=== PATIENT | male | born 1965 | race Caucasian/White ===

== ENCOUNTER 2021-02-10 08:40 | Emergency (ER) | payer BC ==
[~2021-02-10] VITALS: Ht 175.3 cm; Wt 106.8 kg
[2021-02-10] MEDS ORDERED: clindamycin 600mg/D5W 50ml 50 ML IV ONE (09:45)
[2021-02-10 10:22] LABS: BASOPHILS # (AUTO) 0.1 X10'3 (0-0.2); BASOPHILS % (AUTO) 0.8 % (0-1); EOSINOPHILS # (AUTO) 0.2 X10'3 (0-0.9); HEMATOCRIT 39.8 % (42.0-52.0); HEMOGLOBIN 13.6 g/dl (14.0-17.9); LYMPHOCYTES # (AUTO) 1.7 X10'3 (1.1-4.8); LYMPHOCYTES % (AUTO) 14.1 % (21-51); MEAN CORPUSCULAR HEMOGLOBIN 31.6 PG (27.0-31.0); MEAN CORPUSCULAR HGB CONC 34.1 g/dL (33.0-36.5); MEAN CORPUSCULAR VOLUME 92.7 FL (78-98); MEAN PLATELET VOLUME 8.9 FL (7.4-10.4); MONOCYTES % (AUTO) 8.1 % (2-12); NEUTROPHILS # (AUTO) 8.9 X10'3 (1.8-7.7); PLATELET COUNT 196 X10'3 (140-440); RED CELL DISTRIBUTION WIDTH 13.4 % (11.5-14.5); WHITE BLOOD COUNT 11.9 X10'3 (4.5-11.0)
[2021-02-10 10:23] LABS: PARTIAL THROMBOPLASTIN TIME 32 SECONDS (22-32)
[2021-02-10 10:34] LABS: ALANINE AMINOTRANSFERASE 31 U/L (12-78); ALBUMIN/GLOBULIN RATIO 1.1 (1.1-1.5); ALKALINE PHOSPHATASE 65 IU/L (46-116); ANION GAP 10 (8-16); ASPARTATE AMINO TRANSFERASE 18 U/L (10-37); BILIRUBIN,TOTAL 0.9 MG/DL (0.1-1.0); BLOOD UREA NITROGEN 14 MG/DL (7-18); BUN/CREATININE RATIO 15.2 (5.4-32.0); CALCIUM 8.9 MG/DL (8.5-10.1); CHLORIDE 101 MMOL/L (99-107); CREATININE 0.92 MG/DL (0.60-1.10); GLUCOSE 111 MG/DL (70-104); SODIUM 138 MMOL/L (135-145); TOTAL CARBON DIOXIDE 27.2 MMOL/L (24-32); TOTAL PROTEIN 7.7 G/DL (6.4-8.2); eGFR 85 ML/MIN
[2021-02-10] MEDS ORDERED: CLIN-117 PO (12:05)
[2021-02-10 12:24] VITALS: BP 131/81
== END 2021-02-10 12:30 | disposition home or self-care (01) ==
LOC: ER 08:42
DX: R22.0 Localized swelling, mass and lump, head (principal); R50.9 Fever, unspecified; Z79.899 Other long term (current) drug therapy; R79.1 Abnormal coagulation profile
CPT/HCPCS: 36415; 80053; 83605; 84145; 85025; 85610; 85730; 87040; 96365; 96366; 99284; J3490

== ENCOUNTER 2021-03-12 07:21 | Outpatient (CLI) | payer BC ==
[2021-03-12 07:57] LABS: BASOPHILS % (AUTO) 0.5 % (0-1); EOSINOPHILS # (AUTO) 0.3 X10'3 (0-0.9); EOSINOPHILS % (AUTO) 4.2 % (0-6); HEMATOCRIT 41.3 % (42.0-52.0); LYMPHOCYTES # (AUTO) 1.8 X10'3 (1.1-4.8); LYMPHOCYTES % (AUTO) 28.1 % (21-51); MEAN CORPUSCULAR HEMOGLOBIN 31.4 PG (27.0-31.0); MEAN CORPUSCULAR HGB CONC 33.9 g/dL (33.0-36.5); MEAN CORPUSCULAR VOLUME 92.6 FL (78-98); MEAN PLATELET VOLUME 8.6 FL (7.4-10.4); MONOCYTES # (AUTO) 0.6 X10'3 (0-0.9); MONOCYTES % (AUTO) 8.8 % (2-12); NEUTROPHILS # (AUTO) 3.7 X10'3 (1.8-7.7); NEUTROPHILS % (AUTO) 58.4 % (42-75); PLATELET COUNT 181 X10'3 (140-440); RED BLOOD COUNT 4.46 X10'6 (4.70-6.10); RED CELL DISTRIBUTION WIDTH 13.2 % (11.5-14.5); WHITE BLOOD COUNT 6.4 X10'3 (4.5-11.0)
[2021-03-12 08:01] LABS: CLARITY,URINE CLEAR (Clear); COLOR,URINE YELLOW (Yellow); GLUCOSE, URINE NEGATIVE (Neg); KETONES,URINE NEGATIVE (Neg); LEUKOCYTE ESTERASE ,URINE NEGATIVE (Neg); NITRITES, URINE NEGATIVE (Neg); OCCULT BLOOD,URINE TRACE-INTACT (Neg); PROTEIN,URINE NEGATIVE (Neg); UROBILINOGEN,URINE 0.2 E.U/dL (0.2-1.0)
[2021-03-12 08:05] LABS: UA COLLECTION TYPE VOIDED
[2021-03-12 08:19] LABS: BACTERIA,URINE NONE SEEN /HPF (Neg); RBC,URINE NONE SEEN /HPF (0-2); SQUAMOUS EPITHELIAL CELL,UR NONE SEEN /LPF (FEW); WBC,URINE 0-4 /HPF (0-4)
[2021-03-12 08:20] LABS: URIC ACID CRYSTALS 1+ /HPF (NEGATIVE)
[2021-03-12 08:23] LABS: ALANINE AMINOTRANSFERASE 32 U/L (12-78); ALBUMIN/GLOBULIN RATIO 1.1 (1.1-1.5); ALKALINE PHOSPHATASE 52 IU/L (46-116); ANION GAP 6 (8-16); ASPARTATE AMINO TRANSFERASE 17 U/L (10-37); BILIRUBIN,TOTAL 0.5 MG/DL (0.1-1.0); BLOOD UREA NITROGEN 16 MG/DL (7-18); BUN/CREATININE RATIO 18.2 (5.4-32.0); CALCIUM 8.9 MG/DL (8.5-10.1); CHLORIDE 103 MMOL/L (99-107); CHOLESTEROL 229 MG/DL (0-200); CREATININE 0.88 MG/DL (0.60-1.10); GLUCOSE 99 MG/DL (70-104); HDL CHOLESTEROL 57 MG/DL (35-60); LDL CHOLESTEROL 119 MG/DL (50-100); SODIUM 136 MMOL/L (135-145); TOTAL CARBON DIOXIDE 26.8 MMOL/L (24-32); TOTAL PROTEIN 7.6 G/DL (6.4-8.2); TRIGLYCERIDES 171 MG/DL (20-135); eGFR 89 ML/MIN
== END 2021-03-12 23:59 | disposition home or self-care (01) ==
LOC: LAB 07:21
PROVIDERS: ATTEND Family Medicine
DX: E78.5 Hyperlipidemia, unspecified (principal); I10 Essential (primary) hypertension; L40.9 Psoriasis, unspecified; E55.9 Vitamin D deficiency, unspecified; Z86.19 Personal history of other infectious and parasitic diseases
CPT/HCPCS: 36415; 80053; 80061; 81001; 82043; 82306; 82570; 84443; 85025

== ENCOUNTER → 2021-06-06 | Outpatient (CLI) | payer BC ==
[2021-06-06 12:06] LABS: BASOPHILS % (AUTO) 0.4 % (0-1); EOSINOPHILS # (AUTO) 0.1 X10'3 (0-0.9); EOSINOPHILS % (AUTO) 1.1 % (0-6); HEMATOCRIT 37.8 % (42.0-52.0); LYMPHOCYTES # (AUTO) 1.9 X10'3 (1.1-4.8); LYMPHOCYTES % (AUTO) 21.5 % (21-51); MEAN CORPUSCULAR HEMOGLOBIN 31.3 PG (27.0-31.0); MEAN CORPUSCULAR HGB CONC 34.4 g/dL (33.0-36.5); MEAN PLATELET VOLUME 9.2 FL (7.4-10.4); MONOCYTES # (AUTO) 0.7 X10'3 (0-0.9); MONOCYTES % (AUTO) 8.4 % (2-12); NEUTROPHILS % (AUTO) 68.6 % (42-75); PLATELET COUNT 203 X10'3 (140-440); RED BLOOD COUNT 4.16 X10'6 (4.70-6.10); RED CELL DISTRIBUTION WIDTH 13.3 % (11.5-14.5); WHITE BLOOD COUNT 8.8 X10'3 (4.5-11.0)
[2021-06-06 12:19] LABS: CHOL/HDL RATIO 2.6 (0.00-4.99); CHOLESTEROL 187 MG/DL (0-200); HDL CHOLESTEROL 73 MG/DL (35-60); LDL CHOLESTEROL 91 MG/DL (50-100)
[2021-06-06 12:33] LABS: TRIGLYCERIDES 81 MG/DL (20-135)
== END | disposition home or self-care (01) ==
LOC: LAB 11:22
PROVIDERS: ATTEND Family Medicine
DX: Z00.01 Encounter for general adult medical examination with abnormal findings (principal); M79.601 Pain in right arm; M79.89 Other specified soft tissue disorders; E78.5 Hyperlipidemia, unspecified; L03.113 Cellulitis of right upper limb
CPT/HCPCS: 36415; 80061; 85025; 85651

== ENCOUNTER 2021-09-14 10:16 | Outpatient (CLI) | payer BC ==
[2021-09-14 10:55] LABS: BASOPHILS # (AUTO) 0.1 X10'3 (0-0.2); EOSINOPHILS # (AUTO) 0.1 X10'3 (0-0.9); EOSINOPHILS % (AUTO) 2.2 % (0-6); HEMATOCRIT 37.8 % (42.0-52.0); HEMOGLOBIN 13.3 g/dl (14.0-17.9); LYMPHOCYTES # (AUTO) 2.1 X10'3 (1.1-4.8); LYMPHOCYTES % (AUTO) 35.8 % (21-51); MEAN CORPUSCULAR HEMOGLOBIN 32.1 PG (27.0-31.0); MEAN CORPUSCULAR HGB CONC 35.3 g/dL (33.0-36.5); MEAN CORPUSCULAR VOLUME 90.9 FL (78-98); MEAN PLATELET VOLUME 8.3 FL (7.4-10.4); MONOCYTES # (AUTO) 0.4 X10'3 (0-0.9); MONOCYTES % (AUTO) 7.2 % (2-12); NEUTROPHILS # (AUTO) 3.2 X10'3 (1.8-7.7); NEUTROPHILS % (AUTO) 53.8 % (42-75); PLATELET COUNT 197 X10'3 (140-440); RED BLOOD COUNT 4.16 X10'6 (4.70-6.10); RED CELL DISTRIBUTION WIDTH 13.7 % (11.5-14.5); WHITE BLOOD COUNT 5.9 X10'3 (4.5-11.0)
[2021-09-14 11:15] LABS: CHOL/HDL RATIO 2.7 (0.00-4.99); CHOLESTEROL 222 MG/DL (0-200); HDL CHOLESTEROL 82 MG/DL (35-60); LDL CHOLESTEROL 115 MG/DL (50-100); TRIGLYCERIDES 70 MG/DL (20-135)
== END 2021-09-14 23:59 | disposition home or self-care (01) ==
LOC: LAB 10:16
PROVIDERS: ATTEND Family Medicine
DX: Z00.01 Encounter for general adult medical examination with abnormal findings (principal); M79.601 Pain in right arm; M79.89 Other specified soft tissue disorders; E78.5 Hyperlipidemia, unspecified; L03.113 Cellulitis of right upper limb
CPT/HCPCS: 36415; 80061; 85025; 85651

== ENCOUNTER 2021-10-21 10:36 | Emergency (ER) | payer BC ==
[~2021-10-21] VITALS: Ht 170.2 cm; Wt 102.3 kg
[2021-10-21 11:35] VITALS: BP 155/101
--- NOTE | 2021-10-21 12:27 | NUR ---
Pt stated that he is only here for the test only and not treatment.
--- NOTE | 2021-10-21 13:03 | NUR ---
Discharged by provider.
== END 2021-10-21 13:04 | disposition home or self-care (01) ==
LOC: ER 10:38
DX: U07.1 COVID-19 (principal); R09.89 Other specified symptoms and signs involving the circulatory and respiratory systems; R05.9 Cough, unspecified; Z72.89 Other problems related to lifestyle
CPT/HCPCS: 87635; 99283; C9803

== ENCOUNTER 2021-11-20 07:29 | Day surgery (SDC) | payer BC ==
[~2021-11-20] VITALS: Ht 170.2 cm; Wt 99.5 kg
[2021-11-20 07:40] VITALS: BP 133/57
[2021-11-20] MEDS ORDERED: MIDAZolam 1 MG/ML 5ML VIAL ONE (07:43)
[2021-11-20] MEDS ORDERED: fentaNYL/PF 50MCG/1 ML 2ML syringe ONE (07:43)
[2021-11-20] MEDS ORDERED: LOSA100T57 PO (07:54)
[2021-11-20] MEDS ORDERED: ASCO500C17 PO (07:55)
[2021-11-20] MEDS ORDERED: [UNRECOGNIZED DRUG - CODE] (07:56)
[2021-11-20] MEDS ORDERED: diphenhydrAMINE 50 mg/ml inj ONE ×2 (08:24→08:50)
[2021-11-20 10:34] VITALS: BP 125/70
[2021-11-20 10:44] VITALS: BP 147/62
[2021-11-20 10:54] VITALS: BP 140/68
[2021-11-20 11:04] VITALS: BP 161/84
== END 2021-11-20 11:15 | disposition home or self-care (01) ==
LOC: GI LAB 07:29
PROVIDERS: ATTEND Internal Medicine Gastroenterology
DX: Z12.11 Encounter for screening for malignant neoplasm of colon (principal); K57.30 Diverticulosis of large intestine without perforation or abscess without bleeding
CPT/HCPCS: 45378; 99152; J1200; J2250; J3010; J7040; Z7512; 99153; A4620

== ENCOUNTER 2021-11-30 14:25 | Outpatient (CLI) | payer BC ==
[~2021-11-30 14:25] MED LIST: ASCO500C17 PO; LOSA100T57 PO; [UNRECOGNIZED DRUG - CODE]
[2021-11-30 16:25] LABS: BASOPHILS % (AUTO) 0.5 % (0-1); EOSINOPHILS # (AUTO) 0.2 X10'3 (0-0.9); EOSINOPHILS % (AUTO) 2.2 % (0-6); HEMATOCRIT 38.7 % (42.0-52.0); HEMOGLOBIN 13.3 g/dl (14.0-17.9); LYMPHOCYTES # (AUTO) 2.2 X10'3 (1.1-4.8); LYMPHOCYTES % (AUTO) 29.6 % (21-51); MEAN CORPUSCULAR HEMOGLOBIN 31.4 PG (27.0-31.0); MEAN CORPUSCULAR HGB CONC 34.4 g/dL (33.0-36.5); MEAN CORPUSCULAR VOLUME 91.2 FL (78-98); MEAN PLATELET VOLUME 8.9 FL (7.4-10.4); MONOCYTES # (AUTO) 0.6 X10'3 (0-0.9); MONOCYTES % (AUTO) 7.7 % (2-12); NEUTROPHILS # (AUTO) 4.5 X10'3 (1.8-7.7); PLATELET COUNT 213 X10'3 (140-440); RED BLOOD COUNT 4.24 X10'6 (4.70-6.10); RED CELL DISTRIBUTION WIDTH 13.3 % (11.5-14.5); WHITE BLOOD COUNT 7.5 X10'3 (4.5-11.0)
[2021-11-30 16:44] LABS: CHOL/HDL RATIO 3.8 (0.00-4.99); CHOLESTEROL 239 MG/DL (0-200); HDL CHOLESTEROL 63 MG/DL (35-60); LDL CHOLESTEROL 113 MG/DL (50-100); TRIGLYCERIDES 301 MG/DL (20-135)
== END 2021-11-30 23:59 | disposition home or self-care (01) ==
LOC: RAD 14:25
PROVIDERS: ATTEND Family Medicine
DX: E78.5 Hyperlipidemia, unspecified (principal); D50.9 Iron deficiency anemia, unspecified; R20.0 Anesthesia of skin; R20.2 Paresthesia of skin; M19.011 Primary osteoarthritis, right shoulder; M25.411 Effusion, right shoulder; M75.121 Complete rotator cuff tear or rupture of right shoulder, not specified as traumatic; M62.511 Muscle wasting and atrophy, not elsewhere classified, right shoulder; M50.221 Other cervical disc displacement at C4-C5 level; M47.812 Spondylosis without myelopathy or radiculopathy, cervical region; M25.78 Osteophyte, vertebrae; M48.03 Spinal stenosis, cervicothoracic region
CPT/HCPCS: 36415; 72141; 73221; 80061; 85025